=== PATIENT | male | born 1995 | race African-American/Black ===

== ENCOUNTER → 2016-05-22 | Outpatient (REF) | payer OTHER | LOC: M SFHCLERA 09:38 | PROVIDERS: ATTEND Physician Assistant | DX: R36.9 Urethral discharge, unspecified (principal) ==

== ENCOUNTER 2017-09-20 03:22 | Emergency (ER) | payer OTHER ==
[2017-09-20] MEDS: NAPROXEN 250 MG TAB PO (06:03)
[2017-09-20] MEDS: NORCO, ANEXSIA 5/325MG TABLET (HYDROcodone/ACETAMINOPHEN) PO (06:03)
== END 2017-09-20 06:14 | disposition home or self-care (01) ==
LOC: M ED 03:22
DX: S76.911A Strain of unspecified muscles, fascia and tendons at thigh level, right thigh, initial encounter (principal); X50.9XXA Other and unspecified overexertion or strenuous movements or postures, initial encounter; Y92.018 Other place in single-family (private) house as the place of occurrence of the external cause; Z79.890 Hormone replacement therapy
CPT/HCPCS: 99282

== ENCOUNTER 2018-01-17 22:59 | Emergency (ER) | payer OTHER ==
[2018-01-17] MEDS ORDERED: LIDOCAINE 1% MDV 20ML VIAL SC (23:30)
[2018-01-17] MEDS: ADACEL/BOOSTRIX VACCINE (DIPHTH/PERTUSS/ACELL/TETANUS)0.5ML SYR (90715) IM (23:51)
== END 2018-01-18 01:04 | disposition home or self-care (01) ==
LOC: M ED 01-18 01:04
DX: S61.009A Unspecified open wound of unspecified thumb without damage to nail, initial encounter (principal); Y92.009 Unspecified place in unspecified non-institutional (private) residence as the place of occurrence of the external cause; W26.9XXA Contact with unspecified sharp object(s), initial encounter
CPT/HCPCS: 90715

== ENCOUNTER 2018-01-18 15:31 | Emergency (ER) | payer OTHER | END 2018-01-18 16:12 | disposition home or self-care (01) | LOC: M ED 15:31 | DX: S61.411A Laceration without foreign body of right hand, initial encounter (principal); X58.XXXA Exposure to other specified factors, initial encounter; Y92.9 Unspecified place or not applicable; Y93.9 Activity, unspecified; Y99.9 Unspecified external cause status; Z79.899 Other long term (current) drug therapy | CPT/HCPCS: 99282 ==